=== PATIENT | female | born 1950 | race Caucasian/White ===

== ENCOUNTER 2019-06-25 05:57 | Inpatient (IN) | payer MEDICARE ==
[~2019-06-25] VITALS: Ht 162.6 cm; Wt 61.0 kg
[2019-06-25 07:12] LABS: BASOPHILS % (AUTO) 1.1 % (0.0-5.0); EOSINOPHILS % (AUTO) 2.2 % (0.0-8.0); HEMATOCRIT 32.2 % (36-48); LYMPHOCYTES % (AUTO) 40.5 % (21.0-51.0); MEAN CORPUSCULAR HEMOGLOBIN 25.9 pg (27.0-33.0); MEAN CORPUSCULAR HGB CONC 31.7 g/dL (32.0-36.0); MEAN CORPUSCULAR VOLUME 81.7 fL (79-99); MONOCYTES % (AUTO) 6.8 % (3.0-13.0); NEUTROPHILS % (AUTO) 48.7 % (40.0-77.0); RED BLOOD CELL COUNT(AUTO) 3.94 MIL/uL (4.00-5.50); RED CELL DISTRIBUTION WIDTH 19.5 % (11.0-15.5); WHITE BLOOD COUNT (AUTO) 7.2 K/uL (4.8-10.8)
[2019-06-25 07:23] LABS: CREATININE 1.4 mg/dL (0.5-1.5); POTASSIUM 4.7 mmol/L (3.5-5.1)
[2019-06-25 07:24] LABS: INR 1.04 (0.85-1.15); PARTIAL THROMBOPLASTIN TIME 26.3 SEC (26.3-35.5); PROTHROMBIN TIME 10.9 SEC (9.6-11.6)
[2019-06-25] MEDS ORDERED: METOCLOPRAMIDE 10 MG/2 ML VIAL ONE (07:34)
[2019-06-25] MEDS ORDERED: DiphenhydrAMINE HCL 50 MG/ML VIAL ONE (07:34)
[2019-06-25] MEDS ORDERED: ONDANSETRON HCL 4 MG/2 ML VIAL ONE (07:35)
[2019-06-25] MEDS ORDERED: SODIUM CHLORIDE 0.9% 1000ML 1,000 ML IV ONE (07:35)
[2019-06-25 07:37] LABS: BILIRUBIN,TOTAL 0.3 mg/dL (0.2-1.0); THYROID STIMULATING HORMONE 2.53 uIU/mL (0.36-3.74); TOTAL PROTEIN, SERUM 6.6 g/dL (6.0-8.3)
[2019-06-25 08:18] LABS: B-TYPE NATRIURETIC PEPTIDE 392 pg/mL (0-100)
[2019-06-25 08:25] LABS: PLATELET COUNT (AUTO) 806 K/uL (130-400)
[2019-06-25 08:53] LABS: PLATELET MORPHOLOGY COMMENT MARKED INCREASE
[2019-06-25] MEDS ORDERED: TACROLIMUS 2.5 MG PO SCH (09:00)
[2019-06-25] MEDS ORDERED: LACTATED RINGERS 1000ML 1,000 ML IV ONE (09:16)
[2019-06-25] MEDS ORDERED: KETOROLAC TROMETHAMINE 15MG/ML ONE (09:16)
[2019-06-25] MEDS ORDERED: ORPHENADRINE CITRATE 30 MG/ML ML ONE (09:16)
[2019-06-25] MEDS ORDERED: ONDANSETRON HCL 4 MG/2 ML VIAL IV PRN (09:45)
[2019-06-25] MEDS ORDERED: BUTALB/ACETAMINOPHEN/CAFFEINE 1 EACH TABLET PO ONE ×2 (09:45→11:24)
[2019-06-25] MEDS ORDERED: ACETAMINOPHEN 325 MG TAB PO PRN (09:45)
[2019-06-25] MEDS ORDERED: CLONAZEPAM 1 MG TABLET PO SCH (10:00)
[2019-06-25 11:03] LABS: % IRON SATURATION 7.8 % (22-44)
[2019-06-25] MEDS ORDERED: PHARMACY COMMUNICATION MISC SCH (14:15)
[2019-06-25] MEDS ORDERED: CLONAZEPAM 0.5 MG TABLET PO PRN (17:00)
[2019-06-25 20:54] VITALS: BP 133/78
[2019-06-25] MEDS ORDERED: TACROLIMUS 0.5 MG CAPSULE PO SCH (21:00)
[2019-06-25] MEDS ORDERED: MULT-1250 PO (22:18)
[2019-06-25] MEDS ORDERED: CALC-1153 PO (22:18)
[2019-06-25] MEDS ORDERED: ATEN25TA PO (22:19)
[2019-06-25] MEDS ORDERED: ANAG1CAP3 PO (22:19)
[2019-06-25] MEDS ORDERED: TACR1CAP10 PO (22:19)
[2019-06-25] MEDS ORDERED: MESA800T9 PO (22:19)
[2019-06-25] MEDS ORDERED: AEC81 PO (22:19)
[2019-06-25] MEDS ORDERED: TACR0.5C7 PO (22:19)
[2019-06-26] VITALS: BP 105/58
[2019-06-26] MEDS ORDERED: ACETAMINOPHEN EXTRA STRENGTH 500 MG TABLET ONE (00:11)
[2019-06-26] MEDS ORDERED: KETOROLAC TROMETHAMINE 30MG/ML IV PRN (00:15)
[2019-06-26] MEDS ORDERED: ACETAMINOPHEN 325 MG TAB PO PRN (00:15)
[2019-06-26 04:00] VITALS: BP 98/56
[2019-06-26 05:54] LABS: EOSINOPHILS % (AUTO) 1.3 % (0.0-8.0); HEMATOCRIT 28.2 % (36-48); LYMPHOCYTES % (AUTO) 44.9 % (21.0-51.0); MEAN CORPUSCULAR HEMOGLOBIN 25.6 pg (27.0-33.0); MEAN CORPUSCULAR HGB CONC 31.6 g/dL (32.0-36.0); MONOCYTES % (AUTO) 5.1 % (3.0-13.0); RED BLOOD CELL COUNT(AUTO) 3.48 MIL/uL (4.00-5.50); RED CELL DISTRIBUTION WIDTH 18.7 % (11.0-15.5); WHITE BLOOD COUNT (AUTO) 8.9 K/uL (4.8-10.8)
[2019-06-26 06:08] LABS: PLATELET COUNT (AUTO) 794 K/uL (130-400)
[2019-06-26 06:12] LABS: ALBUMIN 2.7 g/dL (3.5-5.0); BILIRUBIN,TOTAL 0.3 mg/dL (0.2-1.0); CREATININE 1.5 mg/dL (0.5-1.5); POTASSIUM 4.8 mmol/L (3.5-5.1); TOTAL PROTEIN, SERUM 5.8 g/dL (6.0-8.3)
[2019-06-26 08:00] VITALS: BP 108/67
[2019-06-26] MEDS: TACROLIMUS 1 MG CAPSULE PO SCH ×2 (08:50→20:57)
[2019-06-26] MEDS: FERROUS SULFATE 325 MG TABLET.DR PO SCH (08:52)
[2019-06-26] MEDS: FAMOTIDINE 20MG TAB 20 MG TAB PO SCH (08:52)
[2019-06-26] MEDS: MULTIVITAMIN WITH MINERALS TABLET PO SCH (08:52)
[2019-06-26] MEDS: CALCIUM 600 + VITAMIN D 400 TABLET PO SCH ×2 (08:52→20:58)
[2019-06-26] MEDS ORDERED: ASPIRIN 81MG TAB.CHEW PO SCH (09:00)
[2019-06-26] MEDS ORDERED: ATENOLOL 25 MG TABLET PO SCH (09:00)
[2019-06-26] MEDS: MESALAMINE 1600 MG PO SCH ×2 (09:00→21:03)
[2019-06-26] MEDS: TACROLIMUS 0.5 MG CAPSULE PO SCH ×2 (09:00→21:03)
[2019-06-26 12:00] VITALS: BP 117/59
[2019-06-26 13:35] LABS: % IRON SATURATION 7.8 % (22-44)
[2019-06-26 16:00] VITALS: BP 117/69
--- NOTE | 2019-06-26 16:34 | NUR ---
INITIAL Patient lives with spouse, Dayron Camarena, . Li Sanders from [place]. No home services or DME. Patient is independent and drives. PCP is Dr. Madhav Garcia. Pharmacy is [facility] in [place]. DCP is home. Addendum: 06/26/19 at 1637 by BERTRAM PRATT SS Amended: Links added.
[2019-06-26 20:00] VITALS: BP 115/70
[2019-06-26] MEDS: ATENOLOL 25 MG TABLET PO SCH (20:57)
[2019-06-26] MEDS: ASPIRIN 81 MG EC TAB PO SCH (20:58)
[2019-06-26] MEDS: ANAGRELIDE 1 MG PO SCH (21:03)
[2019-06-27] VITALS: BP 111/65
[2019-06-27 01:55] LABS: APPEARANCE,URINE Clear (CLEAR); BILIRUBIN,URINE Negative (NEGATIVE); COLOR,URINE Yellow (YELLOW); GLUCOSE, URINE (UA) Negative (NEGATIVE); KETONES,URINE Negative (NEGATIVE); LEUKOCYTE ESTERASE ,URINE Negative (NEGATIVE); NITRATE,URINE Negative (NEGATIVE); OCCULT BLOOD,URINE Negative (NEGATIVE); PROTEIN,URINE Negative (NEGATIVE); UROBILINOGEN,URINE 0.2 mg/dL (0.2-1.0)
[2019-06-27 01:59] LABS: CREATININE,URINE RANDOM 46 mg/dL (30-135); SODIUM,URINE RANDOM 74 mmol/l (40-220)
[2019-06-27 04:00] VITALS: BP 108/66
[2019-06-27 05:03] LABS: BASOPHILS % (AUTO) 1.1 % (0.0-5.0); EOSINOPHILS % (AUTO) 1.4 % (0.0-8.0); LYMPHOCYTES % (AUTO) 47.8 % (21.0-51.0); MEAN CORPUSCULAR HEMOGLOBIN 25.1 pg (27.0-33.0); MEAN CORPUSCULAR HGB CONC 31.3 g/dL (32.0-36.0); MONOCYTES % (AUTO) 5.2 % (3.0-13.0); RED BLOOD CELL COUNT(AUTO) 3.75 MIL/uL (4.00-5.50); RED CELL DISTRIBUTION WIDTH 19.2 % (11.0-15.5); WHITE BLOOD COUNT (AUTO) 10.3 K/uL (4.8-10.8)
[2019-06-27 05:27] LABS: ALBUMIN 2.7 g/dL (3.5-5.0); BILIRUBIN,TOTAL 0.3 mg/dL (0.2-1.0); CREATININE 1.4 mg/dL (0.5-1.5); POTASSIUM 4.8 mmol/L (3.5-5.1); THYROID STIMULATING HORMONE 1.91 uIU/mL (0.36-3.74); TOTAL PROTEIN, SERUM 6.2 g/dL (6.0-8.3)
[2019-06-27 05:38] LABS: % IRON SATURATION 8.4 % (22-44)
[2019-06-27 05:41] LABS: PLATELET COUNT (AUTO) 874 K/uL (130-400)
[2019-06-27 08:00] VITALS: BP 96/65
[2019-06-27] MEDS ORDERED: COMPOUND IV REFRIGERATED 1 EACH IVSOLN MISC PRN (08:30)
[2019-06-27] MEDS: TACROLIMUS 0.5 MG CAPSULE PO SCH ×2 (08:54→20:53)
[2019-06-27] MEDS: MULTIVITAMIN WITH MINERALS TABLET PO SCH (08:54)
[2019-06-27] MEDS: TACROLIMUS 1 MG CAPSULE PO SCH ×2 (08:55→20:53)
[2019-06-27] MEDS: FOLIC ACID/VITAMIN B COMP W-C 1 CAP TAB PO SCH (08:55)
[2019-06-27] MEDS: FERROUS SULFATE 325 MG TABLET.DR PO SCH (08:56)
[2019-06-27] MEDS: CALCIUM 600 + VITAMIN D 400 TABLET PO SCH ×2 (08:56→20:51)
[2019-06-27] MEDS: FAMOTIDINE 20MG TAB 20 MG TAB PO SCH (08:56)
[2019-06-27] MEDS: MESALAMINE 1600 MG PO SCH ×2 (08:57→20:54)
[2019-06-27] MEDS: ANAGRELIDE 1 MG PO SCH ×2 (08:57→20:54)
[2019-06-27] MEDS ORDERED: FOLIC ACID 5 MG/ML 10 ML VIAL IM SCH (09:00)
--- NOTE | 2019-06-27 09:29 | NUR ---
VOMITED ALL PILLS GIVEN THIS AM.
--- NOTE | 2019-06-27 09:30 | NUR ---
DR. COPELAND IN TO SEE PT. NO NEW ORDERS. PENDING LUMBAR TAP TODAY.
[2019-06-27] MEDS ORDERED: LIDOCAINE HCL MPF 1% 5ML VIAL ONE (10:13)
[2019-06-27 11:00] VITALS: BP 101/62
--- NOTE | 2019-06-27 11:01 | NUR ---
LUMBAR PUNCTURE DONE BY JM JOHNSON, PT. TOLERATED PROCEDURE WELL. ADVISED TO TRY AND STAY IN BED FOR THE NEXT FEW HRS. , ALSO INFORMED OF POSSIBLE POST LP HEADACHE.
--- NOTE | 2019-06-27 14:30 | NUR ---
DR. NAIDU IN TO SEE PT. UPDATE GIVEN, ORDERS GIVEN AND ENTERED.
[2019-06-27] MEDS ORDERED: COMPOUND IV MISC 1 EACH IVSOLN MISC PRN (15:15)
[2019-06-27 15:21] LABS: APPEARANCE,CSF CLEAR (CLEAR); COLOR,CSF COLORLESS (COLORLESS); CSF TUBE NUMBER 1; RED BLOOD CELL1,CSF 21 CMM (0-0); WHITE BLOOD CELL1,CSF 0 CMM (0-5)
[2019-06-27 15:30] LABS: APPEARANCE2,CSF CLEAR (CLEAR); COLOR2,CSF COLORLESS (COLORLESS); CSF 2ND TUBE NUMBER TUBE NO.3
[2019-06-27 16:00] VITALS: BP 110/73
[2019-06-27 16:08] LABS: GLUCOSE, CSF 52 mg/dL (40-70)
[2019-06-27 16:09] LABS: TOTAL PROTEIN, CSF 38 mg/dL (15-45)
[2019-06-27] MEDS: IRON SUCROSE COMPLEX 100 MG in SODIUM CHLORIDE 0.9% 50 ML IV SCH (17:21)
[2019-06-27 20:00] VITALS: BP 98/65
[2019-06-27] MEDS: ASPIRIN 81 MG EC TAB PO SCH (20:52)
[2019-06-27] MEDS: ATENOLOL 25 MG TABLET PO SCH (20:53)
[2019-06-28] VITALS: BP 94/56
[2019-06-28 03:56] VITALS: BP 100/56
[2019-06-28 05:44] LABS: HEMATOCRIT 30.1 % (36-48); MEAN CORPUSCULAR HEMOGLOBIN 25.7 pg (27.0-33.0); MEAN CORPUSCULAR HGB CONC 32.2 g/dL (32.0-36.0); MEAN CORPUSCULAR VOLUME 79.6 fL (79-99); RED BLOOD CELL COUNT(AUTO) 3.78 MIL/uL (4.00-5.50); WHITE BLOOD COUNT (AUTO) 9.4 K/uL (4.8-10.8)
[2019-06-28 05:50] LABS: PLATELET COUNT (AUTO) 738 K/uL (130-400)
[2019-06-28 06:01] LABS: BAND NEUTROPHILS % (MANUAL) 5 % (0-2); BASOPHILS % (MANUAL) 1 % (0-2); EOSINOPHILS % (MANUAL) 1 % (1-6); LYMPHOCYTES % (MANUAL) 27 % (22-44); MONOCYTES % (MANUAL) 13 % (2-9); REACTIVE LYMPHOCYTES 5 % (0-0); SEGMENTED NEUTROPHILS % 48 % (40-70)
[2019-06-28 06:02] LABS: MAN.DIFF COMMENT-IMPRESSION MANUAL DIFFERENTIAL; PLATELET MORPHOLOGY COMMENT INCREASED
[2019-06-28 06:19] LABS: ALBUMIN 2.7 g/dL (3.5-5.0); BILIRUBIN,TOTAL 0.3 mg/dL (0.2-1.0); CREATININE 1.5 mg/dL (0.5-1.5); POTASSIUM 4.8 mmol/L (3.5-5.1); TOTAL PROTEIN, SERUM 6.2 g/dL (6.0-8.3)
[2019-06-28 08:01] VITALS: BP 113/62
[2019-06-28] MEDS ORDERED: BUTALB/ACETAMINOPHEN/CAFFEINE 1 EACH TABLET PO PRN (08:15)
[2019-06-28] MEDS: FAMOTIDINE 20MG TAB 20 MG TAB PO SCH (08:59)
[2019-06-28] MEDS: MULTIVITAMIN WITH MINERALS TABLET PO SCH (08:59)
[2019-06-28] MEDS: FERROUS SULFATE 325 MG TABLET.DR PO SCH (08:59)
[2019-06-28] MEDS: TACROLIMUS 1 MG CAPSULE PO SCH ×2 (08:59→20:43)
[2019-06-28] MEDS: TACROLIMUS 0.5 MG CAPSULE PO SCH ×2 (08:59→20:43)
[2019-06-28] MEDS: CALCIUM 600 + VITAMIN D 400 TABLET PO SCH ×2 (08:59→20:43)
[2019-06-28] MEDS: MESALAMINE 1600 MG PO SCH ×2 (09:00→21:00)
[2019-06-28] MEDS: ANAGRELIDE 1 MG PO SCH (09:00)
[2019-06-28] MEDS: FOLIC ACID/VITAMIN B COMP W-C 1 CAP TAB PO SCH (09:00)
[2019-06-28 12:00] VITALS: BP 98/57
[2019-06-28] MEDS: HYDROXYUREA 500 MG CAP PO SCH ×2 (13:30→20:58)
[2019-06-28 16:00] VITALS: BP 103/63
[2019-06-28 20:09] VITALS: BP 96/59
[2019-06-28] MEDS: ASPIRIN 81 MG EC TAB PO SCH (20:43)
[2019-06-28] MEDS: ATENOLOL 25 MG TABLET PO SCH (20:44)
[2019-06-29] VITALS (7 sets, daily range): BP systolic 102–109; BP diastolic 51–69
[2019-06-29] MEDS: TACROLIMUS 1 MG CAPSULE PO SCH ×2 (09:00→21:00)
[2019-06-29] MEDS: MESALAMINE 1600 MG PO SCH ×2 (09:00→20:11)
[2019-06-29] MEDS: FAMOTIDINE 20MG TAB 20 MG TAB PO SCH (09:27)
[2019-06-29] MEDS: FOLIC ACID/VITAMIN B COMP W-C 1 CAP TAB PO SCH (09:27)
[2019-06-29] MEDS: TACROLIMUS 0.5 MG CAPSULE PO SCH ×2 (09:27→21:00)
[2019-06-29] MEDS: FERROUS SULFATE 325 MG TABLET.DR PO SCH (09:27)
[2019-06-29] MEDS: CALCIUM 600 + VITAMIN D 400 TABLET PO SCH ×2 (09:27→20:10)
[2019-06-29] MEDS: MULTIVITAMIN WITH MINERALS TABLET PO SCH (09:27)
[2019-06-29] MEDS: HYDROXYUREA 500 MG CAP PO SCH ×2 (09:27→21:46)
[2019-06-29 09:55] LABS: HEMATOCRIT 32.1 % (36-48); MEAN CORPUSCULAR HEMOGLOBIN 25.4 pg (27.0-33.0); MEAN CORPUSCULAR HGB CONC 31.5 g/dL (32.0-36.0); MEAN CORPUSCULAR VOLUME 80.9 fL (79-99); PLATELET COUNT (AUTO) 562 K/uL (130-400); RED BLOOD CELL COUNT(AUTO) 3.97 MIL/uL (4.00-5.50); WHITE BLOOD COUNT (AUTO) 10.1 K/uL (4.8-10.8)
[2019-06-29] MEDS: FOLIC ACID 1 MG TABLET PO SCH (14:23)
[2019-06-29] MEDS: IRON SUCROSE COMPLEX 100 MG in SODIUM CHLORIDE 0.9% 50 ML IV SCH (14:23)
--- NOTE | 2019-06-29 17:26 | NUR ---
PROGRAF Level is elevated at 10.[address] Bergeron during his rounds, Dr. Darby was paged to notify him of elevated level. No answer back; Dr. Bergeron was notified and offered to page Dr. Darby again. Dr. Bergeron stated not to page Dr. Darby again for this.
--- NOTE | 2019-06-29 20:10 | NUR ---
MEDS SHIFT ASSESSMENT DONE, PLEASE REFER TO CHART. DUE MEDS ADMINISTERED, TOLERATED WELL. PT REFUSED TO TAKE PROGRAF DOSE SHE CLAIMS THAT IT IS VERY HIGH LEVEL. ASSURED TO PAGE LOG PEELER TO VERIFY MED DOSAGE. KEPT RESTED IN BED. CALL LIGHT WITHIN REACH.
[2019-06-29] MEDS: ATENOLOL 25 MG TABLET PO SCH (20:11)
[2019-06-29] MEDS: ASPIRIN 81 MG EC TAB PO SCH (20:11)
--- NOTE | 2019-06-29 21:25 | NUR ---
PAGED DR NAIDU PAGED VIA ANSWERING SERVICE, AWAITING CALL BACK.
--- NOTE | 2019-06-29 21:40 | NUR ---
RE-PAGED NO CALL BACK FROM DR NAIDU, RE-PAGED VIA ANSWERING SERVICE. AWAITING CALL BACK.
--- NOTE | 2019-06-29 22:00 | NUR ---
CALL NO CALL BACK FROM DR NAIDU. CALLED RESOURCE NURSE AND CP NUMBER OBTAINED. CALLED MD VIA CP AND REFERRED PROGRAF LEVEL RESULTS. NEW ORDER GIVEN, PLEASE REFER TO CPOE. INFORMED PT OF MD ORDERS BUT STILL REFUSED PROGRAF DOSE TONIGHT.
--- NOTE | 2019-06-30 02:00 | NUR ---
ROUNDS PT RESTING WELL, FAIRLY ASLEEP. NO DISTRESS NOTED. KEPT RESTED AND COMFORTABLE. CALL LIGHT WITHIN REACH. WILL MONITOR PT.
[2019-06-30 03:10] VITALS: BP 98/59
[2019-06-30 05:51] LABS: HEMATOCRIT 32.8 % (36-48); MEAN CORPUSCULAR HEMOGLOBIN 25.2 pg (27.0-33.0); MEAN CORPUSCULAR HGB CONC 31.7 g/dL (32.0-36.0); MEAN CORPUSCULAR VOLUME 79.6 fL (79-99); PLATELET COUNT (AUTO) 464 K/uL (130-400); RED BLOOD CELL COUNT(AUTO) 4.12 MIL/uL (4.00-5.50); RED CELL DISTRIBUTION WIDTH 18.6 % (11.0-15.5); WHITE BLOOD COUNT (AUTO) 9.5 K/uL (4.8-10.8)
[2019-06-30 06:00] LABS: CREATININE 1.5 mg/dL (0.5-1.5); POTASSIUM 5.2 mmol/L (3.5-5.1)
--- NOTE | 2019-06-30 06:00 | NUR ---
ROUNDS PT STILL FAIRLY ASLEEP. NO DISTRESS NOTED. KEPT COMFORTABLE. FOR MORE CARE.
[2019-06-30 07:58] VITALS: BP 125/85
[2019-06-30] MEDS: MESALAMINE 1600 MG PO SCH ×2 (09:00→20:52)
[2019-06-30] MEDS: TACROLIMUS 0.5 MG CAPSULE PO SCH ×2 (09:00→21:00)
[2019-06-30] MEDS: TACROLIMUS 1 MG CAPSULE PO SCH ×2 (09:00→21:00)
[2019-06-30] MEDS: HYDROXYUREA 500 MG CAP PO SCH ×2 (09:17→20:52)
[2019-06-30] MEDS: CALCIUM 600 + VITAMIN D 400 TABLET PO SCH ×2 (09:17→20:52)
[2019-06-30] MEDS: FAMOTIDINE 20MG TAB 20 MG TAB PO SCH (09:17)
[2019-06-30] MEDS: MULTIVITAMIN WITH MINERALS TABLET PO SCH (09:17)
[2019-06-30] MEDS: FOLIC ACID/VITAMIN B COMP W-C 1 CAP TAB PO SCH (09:17)
[2019-06-30] MEDS: FERROUS SULFATE 325 MG TABLET.DR PO SCH (09:17)
[2019-06-30] MEDS: FOLIC ACID 1 MG TABLET PO SCH (09:17)
[2019-06-30] MEDS ORDERED: SODIUM POLYSTYRENE SULFONATE 15 GM/60 ML ML PO SCH (09:30)
[2019-06-30 11:37] VITALS: BP 91/53
[2019-06-30] MEDS: IRON SUCROSE COMPLEX 100 MG in SODIUM CHLORIDE 0.9% 50 ML IV SCH (13:24)
[2019-06-30 16:00] VITALS: BP 94/50
[2019-06-30] MEDS ORDERED: IRON SUCROSE COMPLEX 100 MG in SODIUM CHLORIDE 0.9% 50 ML IV SCH ×3 (16:00→20:15)
[2019-06-30 19:35] VITALS: BP 92/53
[2019-06-30] MEDS: ASPIRIN 81 MG EC TAB PO SCH (20:52)
--- NOTE | 2019-06-30 20:55 | NUR ---
MEDS SHIFT ASSESSMENT DONE, PLEASE REFER TO CHART. DUE MEDS ADMINISTERED, TOLERATED WELL. PT REFUSED PROGRAF DOSE AT THIS TIME. PIV NOTED TO BE INFILTRATED, DISCONTINUED WITH CATHETER INTACT. RE-INSERTED NEW PIV G22 TO RFA, PT TOLERATED WELL. KEPT RESTED AND COMFORTABLE IN BED. CALL LIGHT WITHIN REACH. WILL MONITOR PT. Addendum: 06/30/19 at 2321 by ANIRUDH SOARES RN RN Amended: Links added.
[2019-06-30] MEDS: ATENOLOL 25 MG TABLET PO SCH (21:00)
[2019-06-30 23:33] VITALS: BP 102/58
[2019-07-01] VITALS (28 sets, daily range): BP systolic 82–115; BP diastolic 36–63
--- NOTE | 2019-07-01 02:00 | NUR ---
ROUNDS PT RESTING WELL, NO DISTRESS NOTED. SLEPT AT LONG INTERVALS. KEPT UNDISTURBED FOR NOW. WILL MONITOR PT.
--- NOTE | 2019-07-01 05:38 | NUR ---
ROUNDS PT RESTING WELL, NO DISTRESS NOTED. NO CONCERNS VERBALIZED. KEPT COMFORTABLE. FOR MORE CARE.
[2019-07-01 06:09] LABS: MEAN CORPUSCULAR HEMOGLOBIN 25.4 pg (27.0-33.0); MEAN CORPUSCULAR HGB CONC 31.8 g/dL (32.0-36.0); MEAN CORPUSCULAR VOLUME 79.9 fL (79-99); PLATELET COUNT (AUTO) 297 K/uL (130-400); RED BLOOD CELL COUNT(AUTO) 4.13 MIL/uL (4.00-5.50); RED CELL DISTRIBUTION WIDTH 18.9 % (11.0-15.5); WHITE BLOOD COUNT (AUTO) 9.4 K/uL (4.8-10.8)
[2019-07-01 06:33] LABS: CREATININE 1.4 mg/dL (0.5-1.5); POTASSIUM 4.6 mmol/L (3.5-5.1)
--- NOTE | 2019-07-01 08:40 | NUR ---
NOTIFIED NOTIFIED DR. GONZALEZ REGARDING NOTIFICATION FROM TELE THAT PATIENT'S HEART RATE JUMPED TO THE 190'S. CONTACTED PATIENT WHO WAS IN THE BATHROOM BRUSHING HER TEETH. PATIENT STATED SHE WAS TIRED AND SOB. PATIENT MOVED TO BED AND ASSESSED. HEART RATE DROPPED TO 86 WITH BP OF 109/54. DR. GONZALEZ ORDERED A ONE TIME DOSE OF ATEOLOL 25MG. PATIENT NOW RESTING COMFORTABLY.
[2019-07-01] MEDS: TACROLIMUS 1 MG CAPSULE PO SCH ×2 (09:00→21:00)
[2019-07-01] MEDS ORDERED: ATENOLOL 25 MG TABLET PO SCH (09:00)
[2019-07-01] MEDS: TACROLIMUS 0.5 MG CAPSULE PO SCH ×2 (09:00→21:00)
[2019-07-01] MEDS ORDERED: IRON SUCROSE COMPLEX 100 MG in SODIUM CHLORIDE 0.9% 50 ML IV SCH (09:00)
[2019-07-01] MEDS: FOLIC ACID/VITAMIN B COMP W-C 1 CAP TAB PO SCH (09:20)
[2019-07-01] MEDS: FAMOTIDINE 20MG TAB 20 MG TAB PO SCH (09:20)
[2019-07-01] MEDS: FERROUS SULFATE 325 MG TABLET.DR PO SCH (09:20)
[2019-07-01] MEDS: CALCIUM 600 + VITAMIN D 400 TABLET PO SCH ×2 (09:21→21:00)
[2019-07-01] MEDS: MULTIVITAMIN WITH MINERALS TABLET PO SCH (09:21)
[2019-07-01] MEDS: FOLIC ACID 1 MG TABLET PO SCH (09:21)
[2019-07-01] MEDS: HYDROXYUREA 500 MG CAP PO SCH (09:21)
[2019-07-01] MEDS: MESALAMINE 1600 MG PO SCH ×2 (09:24→21:00)
[2019-07-01] MEDS ORDERED: PANTOPRAZOLE 40 MG/VIAL IVP SCH (13:30)
[2019-07-01] MEDS ORDERED: OCTREOTIDE ACETATE 100 MCG/ML AMP IV SCH (13:30)
[2019-07-01] MEDS ORDERED: OCTREOTIDE ACETATE 1,250 MCG in SODIUM CHLORIDE 0.9% 250 ML IV SCH (13:30)
[2019-07-01] MEDS ORDERED: DEXTROSE 5%-LACTATED RINGERS 1,000 ML IV SCH (13:30)
[2019-07-01] MEDS ORDERED: LACTATED RINGERS 1000ML 1,000 ML IV SCH (14:00)
[2019-07-01] MEDS ORDERED: LACTATED RINGERS 1000ML 1,000 ML IV ONE (14:07)
[2019-07-01] MEDS: PANTOPRAZOLE SODIUM 80 MG in SODIUM CHLORIDE 0.9% 100 ML IV SCH ×3 (14:17→20:37)
[2019-07-01 14:34] LABS: BASOPHILS % (AUTO) 0.8 % (0.0-5.0); EOSINOPHILS % (AUTO) 0.8 % (0.0-8.0); HEMATOCRIT 31.6 % (36-48); LYMPHOCYTES % (AUTO) 41.4 % (21.0-51.0); MEAN CORPUSCULAR HEMOGLOBIN 25.6 pg (27.0-33.0); MONOCYTES % (AUTO) 4.6 % (3.0-13.0); NEUTROPHILS % (AUTO) 51.8 % (40.0-77.0); PLATELET COUNT (AUTO) 284 K/uL (130-400); RED BLOOD CELL COUNT(AUTO) 3.95 MIL/uL (4.00-5.50); RED CELL DISTRIBUTION WIDTH 18.8 % (11.0-15.5)
[2019-07-01 15:00] LABS: INR 1.08 (0.85-1.15); PARTIAL THROMBOPLASTIN TIME 30.7 SEC (26.3-35.5); PROTHROMBIN TIME 11.6 SEC (9.6-11.6)
--- NOTE | 2019-07-01 16:57 | NUR ---
REPORT REPORT GIVEN TO CORINE RN ON 2ND FLOOR REGARDING TRANSFER OF PATIENT.
[2019-07-01] MEDS ORDERED: MAGNESIUM CITRATE 296 ML SOLUTION PO SCH (17:00)
[2019-07-01] MEDS ORDERED: PEG 3350/NA SULF,BICARB,CL/KCL 4000 ML SOLN PO SCH (17:00)
[2019-07-01] MEDS ORDERED: LACTULOSE 20 GM/30 ML UDCUP PO SCH (17:00)
--- NOTE | 2019-07-01 17:18 | NUR ---
PATIENT TRANSFER PATIENT TRANSFERRED TO 2ND FLOOR.
[2019-07-01] MEDS ORDERED: SODIUM CHLORIDE 0.9% 1000ML 1,000 ML IV STA (17:39)
[2019-07-01] MEDS ORDERED: SODIUM CHLORIDE 0.9% 1000ML 1,000 ML IV ONE (17:47)
--- NOTE | 2019-07-01 18:00 | NUR ---
1719 RECEIVED PT FROM 3RD FLOOR. HYPOTENSIVE BUT ALERT. AWAKE, ORIENTED, MOVES ALL EXTREMITES. C/O RECTAL BLEEDING. LAST BLEED WAS At 2PM, STATES WERE DARK CLOTS. STARTED [address] AJ DUE TO EARLIER RUN OF SVT. DR GÓMEZ AWARE OF CONSULT. DR SHEEHAN TO SEE PT. ORDERED TO WAIT FOR BLOOD TRANSFUSION UNTIL PT HAS HAD NEW H&H DRAWN. AND IS ACTIVELY BLEEDING. DR GONZALEZ HERE TO SEE PT AFTER SISSY LEFT AND IS CONCURRING WITH SISSY ABOUT BLOOD.
[2019-07-01] MEDS: LACTATED RINGERS 1000ML 1,000 ML IV SCH (18:04)
--- NOTE | 2019-07-01 18:30 | NUR ---
BP HAS GONE UP WITH FLUID BOLUS. PT IS AAO X4. AT BEDSIDE.
[2019-07-01] MEDS: ASPIRIN 81 MG EC TAB PO SCH (18:32)
[2019-07-01] MEDS ORDERED: PHENYLEPHRINE HCL 10 MG in SODIUM CHLORIDE 0.9% 250 ML IV PRN (18:54)
[2019-07-01] MEDS: ATENOLOL 25 MG TABLET PO SCH (21:31)
[2019-07-01] MEDS ORDERED: SODIUM CHLORIDE 0.9% 250 ML IV ONE (22:10)
--- NOTE | 2019-07-01 23:30 | NUR ---
rounding Patient continues to feel weak and unable to drink medications, informed states to hold medication till tomorrow until patients feels capable to drink medication. Case to be reevaluated tomorrow AM
[2019-07-02] VITALS (42 sets, daily range): BP systolic 94–132; BP diastolic 45–73
[2019-07-02 05:37] LABS: HEMATOCRIT 29.2 % (36-48); MEAN CORPUSCULAR HEMOGLOBIN 25.8 pg (27.0-33.0); MEAN CORPUSCULAR HGB CONC 31.8 g/dL (32.0-36.0); MEAN CORPUSCULAR VOLUME 80.9 fL (79-99); PLATELET COUNT (AUTO) 231 K/uL (130-400); RED BLOOD CELL COUNT(AUTO) 3.61 MIL/uL (4.00-5.50); RED CELL DISTRIBUTION WIDTH 17.8 % (11.0-15.5); WHITE BLOOD COUNT (AUTO) 8.8 K/uL (4.8-10.8)
[2019-07-02 06:07] LABS: CREATININE 1.5 mg/dL (0.5-1.5); MAGNESIUM 2.4 mg/dL (1.80-2.40); POTASSIUM 4.7 mmol/L (3.5-5.1)
[2019-07-02] MEDS: PANTOPRAZOLE SODIUM 80 MG in SODIUM CHLORIDE 0.9% 100 ML IV SCH ×2 (07:48→17:56)
[2019-07-02] MEDS: FOLIC ACID/VITAMIN B COMP W-C 1 CAP TAB PO SCH (09:00)
[2019-07-02] MEDS: FAMOTIDINE 20MG TAB 20 MG TAB PO SCH (09:00)
[2019-07-02] MEDS: FOLIC ACID 1 MG TABLET PO SCH (09:00)
[2019-07-02] MEDS: MESALAMINE 1600 MG PO SCH (09:00)
[2019-07-02] MEDS: CALCIUM 600 + VITAMIN D 400 TABLET PO SCH ×2 (09:00→23:23)
[2019-07-02] MEDS: TACROLIMUS 1 MG CAPSULE PO SCH ×2 (09:00→21:00)
[2019-07-02] MEDS: FERROUS SULFATE 325 MG TABLET.DR PO SCH (09:00)
[2019-07-02] MEDS: TACROLIMUS 0.5 MG CAPSULE PO SCH ×2 (09:00→21:00)
[2019-07-02] MEDS: MULTIVITAMIN WITH MINERALS TABLET PO SCH (09:00)
[2019-07-02] MEDS: LACTATED RINGERS 1000ML 1,000 ML IV SCH ×2 (11:43→22:36)
[2019-07-02 12:07] LABS: HEMATOCRIT 29.2 % (36-48)
--- NOTE | 2019-07-02 14:55 | NUR ---
RD SCREEN - LOS X 7 Pt admitted for severe headache, GBW x10 days. Pt Hx of ulcerative colitis, anemia, liver transplant. Pt NPO this AM, pending procedure. When medically feasible, recommend advance diet as tolerated to Heart Healthy, GI Soft diet order. RD to continue to monitor. Please notify LILA as additional nutrition concerns arise. thank you. Addendum: 07/02/19 at [address] Amended: Links added.
--- NOTE | 2019-07-02 20:20 | NUR ---
MD ROUNDS DR CHOPRA AT THE BEDSIDE UPDATED ON PATIENT CONDITION. INQUIRED TO WHY HAS BEEN REFUSING PROGRAF. PATIENT STATED THAT LAST LEVEL WAS ELEVATED AND IS TRYING TO CONTACT [facility] ON RECOMMENDED RANGE. TACROLIMUS LEVEL DRAWN. MD SPOKE TO PATIENT REGARDING CURRENT AND PAST THERAPIES. PATIENT PENDING TO GO FOR COLOSCOPY. DR CHOPRA RECOMMENDATION FOR MASALAMINE KS, TO COMMUNICATE WITH DR GRIMM AND SEE WHAT GI RECOMMENDS. PATIENT QUESTIONS ANSWERED.
[2019-07-02] MEDS ORDERED: PROPOFOL 10 MG/ML 20ML VIAL IV ONE ×2 (21:04)
[2019-07-02] MEDS ORDERED: LIDOCAINE HCL 1% 20 ML VIAL ONE (21:05)
[2019-07-02 21:18] LABS: HEMATOCRIT 31.1 % (36-48)
[2019-07-02] MEDS ORDERED: MESALAMINE 4 GM/60 ML BOTTLE RC SCH (22:00)
[2019-07-02] MEDS ORDERED: MESALAMINE 4 GM/60 ML BOTTLE RC ONE (22:00)
--- NOTE | 2019-07-02 22:00 | NUR ---
COLONOSCOPY 2051 PATIENT TO GI LAB FOR COLONOSCOPY. 2137 REPORT CALLED FROM GI LAB. DR SIRISHA TROTTER WITH MESALAMINE NH. 2149 PATIENT RETURNED TO ROOM 207. LYING LEFT LATERAL. BREATHING REGULAR UNLABORED WITH 2L NC. NEOSYNEPHRINE RESTARTED DURING PROCEDURE. NO ACUTE SIGNS OR SYMPTOMS OF DISTRESS. ORDERS REVIEWED.
[2019-07-02] MEDS: ATENOLOL 25 MG TABLET PO SCH (23:25)
[2019-07-03] VITALS (22 sets, daily range): BP systolic 89–112; BP diastolic 33–66
[2019-07-03 03:45] LABS: BASOPHILS % (AUTO) 1.3 % (0.0-5.0); EOSINOPHILS % (AUTO) 0.4 % (0.0-8.0); HEMATOCRIT 28.5 % (36-48); LYMPHOCYTES % (AUTO) 62.1 % (21.0-51.0); MEAN CORPUSCULAR HEMOGLOBIN 25.2 pg (27.0-33.0); MEAN CORPUSCULAR HGB CONC 30.9 g/dL (32.0-36.0); MEAN CORPUSCULAR VOLUME 81.7 fL (79-99); MONOCYTES % (AUTO) 3.8 % (3.0-13.0); NEUTROPHILS % (AUTO) 31.7 % (40.0-77.0); PLATELET COUNT (AUTO) 313 K/uL (130-400); RED BLOOD CELL COUNT(AUTO) 3.49 MIL/uL (4.00-5.50); RED CELL DISTRIBUTION WIDTH 18.7 % (11.0-15.5); WHITE BLOOD COUNT (AUTO) 10.5 K/uL (4.8-10.8)
[2019-07-03 03:59] LABS: INR 1.11 (0.85-1.15); PARTIAL THROMBOPLASTIN TIME 31.3 SEC (26.3-35.5); PROTHROMBIN TIME 11.9 SEC (9.6-11.6)
[2019-07-03 04:01] LABS: CREATININE 1.3 mg/dL (0.5-1.5); MAGNESIUM 2.1 mg/dL (1.80-2.40); PHOSPHORUS 1.9 mg/dL (2.5-4.9); POTASSIUM 4.2 mmol/L (3.5-5.1)
[2019-07-03] MEDS: TACROLIMUS 1 MG CAPSULE PO SCH ×2 (09:00→21:00)
[2019-07-03] MEDS: TACROLIMUS 0.5 MG CAPSULE PO SCH ×2 (09:00→21:00)
[2019-07-03] MEDS: FAMOTIDINE 20MG TAB 20 MG TAB PO SCH (09:00)
[2019-07-03] MEDS: MULTIVITAMIN WITH MINERALS TABLET PO SCH (09:31)
[2019-07-03] MEDS: FOLIC ACID 1 MG TABLET PO SCH (09:31)
[2019-07-03] MEDS: FERROUS SULFATE 325 MG TABLET.DR PO SCH (09:31)
[2019-07-03] MEDS: PANTOPRAZOLE SODIUM 40 MG TABLET.DR PO SCH ×2 (09:31→21:21)
[2019-07-03] MEDS: FOLIC ACID/VITAMIN B COMP W-C 1 CAP TAB PO SCH (09:31)
[2019-07-03] MEDS: CALCIUM 600 + VITAMIN D 400 TABLET PO SCH ×2 (09:31→21:21)
[2019-07-03] MEDS: MESALAMINE 800 MG PO SCH ×3 (10:52→21:23)
--- NOTE | 2019-07-03 13:30 | NUR ---
REPORT FROM ICU REPORT RECEIVED AT 1248 PATIENT BEING TRANSFERRED FROM [facility] TO ROOM 332 , PATIENT HAD COLOSTOMY 07/02/19 FINDING NO ACUTE BLEEDING TRANSFUSED 1 UNIT OF PRBC 06/30 H/H TODAY 8.8/28.5 , HAS PATIENT HAS HX OF LIVER TRANSPLANT, AFIB,EF 60-65% , ON CLEAR LIQUID DIET 2 IV LINELEFT F /A 18G AND R F/A 22 G INTACT PATENT SL, O2 AT 2 LITERS NC VOIDS, LAST BM 3. BLOODY STOOL X2 , AT BEDSIDE WILL CONTINUE TO MONITOR
[2019-07-03] MEDS ORDERED: MESALAMINE 4 GM/60 ML BOTTLE RC SCH ×2 (21:00)
[2019-07-03] MEDS: ATENOLOL 25 MG TABLET PO SCH (21:21)
[2019-07-03] MEDS: MESALAMINE 4 GM/60 ML BOTTLE RC SCH (21:22)
[2019-07-04] VITALS: BP 98/56
[2019-07-04 01:08] LABS: HSV 1/2 COMBINED AB IGG CSF <0.34 IV (<=0.89); HSV TYPE 1/2 COMBINED IGM CSF 0.21 IV (<=0.89); MUMPS VIRUS IGG ANTIBODY CSF <5.0 AU/mL (<=10.9); MUMPS VIRUS IGM ANTIBODY CSF 0.15 IV (<=0.79); VARICELLA IGG ANTIBODY CSF <10.0 IV (.); WEST NILE VIRUS IGG CSF 0.11 IV (<=1.29)
[2019-07-04 04:00] VITALS: BP 96/57
[2019-07-04 04:52] LABS: HEMATOCRIT 26.4 % (36-48); MEAN CORPUSCULAR HEMOGLOBIN 25.9 pg (27.0-33.0); MEAN CORPUSCULAR HGB CONC 32.2 g/dL (32.0-36.0); MEAN CORPUSCULAR VOLUME 80.5 fL (79-99); PLATELET COUNT (AUTO) 343 K/uL (130-400); RED BLOOD CELL COUNT(AUTO) 3.28 MIL/uL (4.00-5.50); WHITE BLOOD COUNT (AUTO) 12.4 K/uL (4.8-10.8)
[2019-07-04 05:16] LABS: CREATININE 1.3 mg/dL (0.5-1.5)
[2019-07-04 07:38] LABS: EOSINOPHILS % (MANUAL) 1 % (1-6); LYMPHOCYTES % (MANUAL) 44 % (22-44); MAN.DIFF COMMENT-IMPRESSION MANUAL DIFFERENTIAL; MONOCYTES % (MANUAL) 7 % (2-9); PLATELET MORPHOLOGY COMMENT ADEQUATE; REACTIVE LYMPHOCYTES 4 % (0-0); SEGMENTED NEUTROPHILS % 44 % (40-70)
[2019-07-04 08:36] VITALS: BP 95/59
[2019-07-04] MEDS: FERROUS SULFATE 325 MG TABLET.DR PO SCH (08:51)
[2019-07-04] MEDS: CALCIUM 600 + VITAMIN D 400 TABLET PO SCH ×2 (08:51→21:00)
[2019-07-04] MEDS: FOLIC ACID 1 MG TABLET PO SCH (08:52)
[2019-07-04] MEDS: FOLIC ACID/VITAMIN B COMP W-C 1 CAP TAB PO SCH (08:52)
[2019-07-04] MEDS: MULTIVITAMIN WITH MINERALS TABLET PO SCH (08:52)
[2019-07-04] MEDS: MESALAMINE 800 MG PO SCH ×3 (08:55→21:00)
[2019-07-04] MEDS: FAMOTIDINE 20MG TAB 20 MG TAB PO SCH (08:56)
[2019-07-04] MEDS: TACROLIMUS 1 MG CAPSULE PO SCH ×2 (09:00→21:00)
[2019-07-04] MEDS: TACROLIMUS 0.5 MG CAPSULE PO SCH ×2 (09:00→21:00)
[2019-07-04] MEDS: PANTOPRAZOLE SODIUM 40 MG TABLET.DR PO SCH ×2 (12:00→21:00)
[2019-07-04 12:02] VITALS: BP 94/46
--- NOTE | 2019-07-04 13:36 | NUR ---
PHYSICIAN ROUNDS DR MARY ROUNDED ON PATIENT, RX WRITTEN PATIENT MAY BE DISCHARGE FOLLOW-UP IN 1 WEEK. PRESCRIPTION PLACED IN CHART FOR DISCHARGE AND WRITTEN ODER SEND TO PHARMACY.
--- NOTE | 2019-07-04 13:46 | NUR ---
PHYSICIAN ROUND DR NAIDU ROUNDED ON PATIENT LABS ORDERED FOR AM CBC AND BMP
[2019-07-04 16:12] VITALS: BP 92/50
--- NOTE | 2019-07-04 16:48 | NUR ---
CM NOTE MEET WITH PATIENT IN ROOM. INFORMED PATIENT OF PT RECOMMENDATIONS FOR HH WITH PT. INFORMED PATIENT TO FOLLOW UP WITH HER PRIMARY CARE PHYSICIAN FOR HH WITH PHYSICAL THERAPY, PATIENT VERBALIZED UNDERSTANDING OF PRIMARY CARE PHYSICIAN OVERSEEING HOME HEALTH WITH PT. PRIMARY NURSE, EDWINA AVILES, MADE AWARE.
--- NOTE | 2019-07-04 19:25 | NUR ---
Received bedside report,patient is possibly going home tomorrow with Homehealth for PT.Patient verbalized she is feeling too weak.
[2019-07-04 20:00] VITALS: BP 101/55
--- NOTE | 2019-07-04 20:30 | NUR ---
here and said patient called him asking for help .went to check on patient and v/s receheked.Patient answered questions but too weak . [employer]SULT[employer] Corbin notified about patient new metation change and Temp 102.1
--- NOTE | 2019-07-04 20:30 | NUR ---
SONIYA Ramirez ic here and examined the patient.
[2019-07-04] MEDS: ATENOLOL 25 MG TABLET PO SCH (21:00)
[2019-07-04] MEDS: MESALAMINE 4 GM/60 ML BOTTLE RC SCH (21:00)
[2019-07-04] MEDS ORDERED: ACETAMINOPHEN 650 MG SUPPOSITORY RC ONE (21:12)
[2019-07-04] MEDS ORDERED: ACETAMINOPHEN 650 MG SUPPOSITORY RC PRN (21:15)
[2019-07-04] MEDS: SODIUM CHLORIDE 0.9% 1000ML 1,000 ML IV SCH (21:19)
--- NOTE | 2019-07-04 21:20 | NUR ---
Patient and refused CT head to be done .
[2019-07-04] MEDS ORDERED: VANCOMYCIN PROTOCOL PER PHARMACY IV SCH (21:30)
[2019-07-04] MEDS ORDERED: VANCOMYCIN 1GM+NS 250ML 250 ML IV ONE (21:45)
--- NOTE | 2019-07-04 21:49 | NUR ---
notified of patient condition and V/S Syhdy1q 102.1 ,received new order to give Merrem and Vancomycin IV.
[2019-07-04 21:51] LABS: ABG BASE EXCESS -4.3 mmol/L (-2.0-3.0); ABG HCO3 18.1 mmol/L (21.0-28.0); ABG OXYGEN SATURATION 95.9 % (95.0-99.0); ABG PCO2 27 mmHg (32-45)
[2019-07-04 21:52] LABS: MEAN CORPUSCULAR HGB CONC 32.2 g/dL (32.0-36.0); MEAN CORPUSCULAR VOLUME 80.6 fL (79-99); PLATELET COUNT (AUTO) 400 K/uL (130-400); RED BLOOD CELL COUNT(AUTO) 3.35 MIL/uL (4.00-5.50); RED CELL DISTRIBUTION WIDTH 18.3 % (11.0-15.5); WHITE BLOOD COUNT (AUTO) 12.1 K/uL (4.8-10.8)
[2019-07-04] MEDS ORDERED: MEROPENEM 1 GM VIAL IVP SCH (22:00)
[2019-07-04 22:08] LABS: CRP QUANTITATIVE 57.7 mg/L (0.00-9.0)
[2019-07-04 22:33] LABS: AMMONIA 12 umol/L (11-32); CREATINE KINASE, TOTAL 16 U/L (21-232); MYOGLOBIN 32 ng/mL (10-92); TROPONIN I < 0.04 ng/mL (0.00-0.06)
[2019-07-04] MEDS: MEROPENEM 1 GM VIAL IVP SCH (22:33)
[2019-07-04 22:47] LABS: CREATININE 1.2 mg/dL (0.5-1.5)
[2019-07-04 22:52] LABS: ALBUMIN 2.1 g/dL (3.5-5.0); BILIRUBIN,TOTAL 0.3 mg/dL (0.2-1.0); MAGNESIUM 2.2 mg/dL (1.80-2.40); TOTAL PROTEIN, SERUM 5.1 g/dL (6.0-8.3)
[2019-07-04 23:22] LABS: BAND NEUTROPHILS % (MANUAL) 2 % (0-2); LYMPHOCYTES % (MANUAL) 43 % (22-44); MAN.DIFF COMMENT-IMPRESSION MANUAL DIFFERENTIAL; MONOCYTES % (MANUAL) 2 % (2-9); SEGMENTED NEUTROPHILS % 53 % (40-70)
[2019-07-04 23:23] LABS: PLATELET MORPHOLOGY COMMENT ADEQUATE
--- NOTE | 2019-07-04 23:40 | NUR ---
notified and updated with patient V/SD and lab results, informed patient refused Ct head and verbalized feeling much better now.He said to continue to transfer patient in ICU for close monitoring for tonight.
[2019-07-05] VITALS (24 sets, daily range): BP systolic 85–112; BP diastolic 41–70
--- NOTE | 2019-07-05 | NUR ---
Report given to ICU nurse Uche using SBAR all questions answered.Patient remained NPO and NS infusing well to right forearm.Patient is going to ICU 217. was also updated .
[2019-07-05 04:58] LABS: BASOPHILS % (AUTO) 0.6 % (0.0-5.0); EOSINOPHILS % (AUTO) 0.2 % (0.0-8.0); HEMATOCRIT 26.2 % (36-48); LYMPHOCYTES % (AUTO) 63.2 % (21.0-51.0); MEAN CORPUSCULAR HEMOGLOBIN 25.7 pg (27.0-33.0); MEAN CORPUSCULAR HGB CONC 32.1 g/dL (32.0-36.0); MEAN CORPUSCULAR VOLUME 80.1 fL (79-99); MONOCYTES % (AUTO) 3.5 % (3.0-13.0); NEUTROPHILS % (AUTO) 31.5 % (40.0-77.0); PLATELET COUNT (AUTO) 381 K/uL (130-400); RED BLOOD CELL COUNT(AUTO) 3.27 MIL/uL (4.00-5.50); RED CELL DISTRIBUTION WIDTH 18.6 % (11.0-15.5); WHITE BLOOD COUNT (AUTO) 10.4 K/uL (4.8-10.8)
[2019-07-05 05:12] LABS: BILIRUBIN,TOTAL 0.3 mg/dL (0.2-1.0); POTASSIUM 3.8 mmol/L (3.5-5.1)
[2019-07-05 05:19] LABS: MAGNESIUM 1.9 mg/dL (1.80-2.40)
[2019-07-05 06:11] LABS: CREATININE 1.1 mg/dL (0.5-1.5)
[2019-07-05] MEDS: MEROPENEM 1 GM VIAL IVP SCH ×3 (06:34→22:00)
[2019-07-05] MEDS: SODIUM CHLORIDE 0.9% 1000ML 1,000 ML IV SCH ×2 (06:35→18:15)
[2019-07-05] MEDS: FOLIC ACID 1 MG TABLET PO SCH (09:28)
[2019-07-05] MEDS: TACROLIMUS 1 MG CAPSULE PO SCH ×2 (09:28→20:39)
[2019-07-05] MEDS: CALCIUM 600 + VITAMIN D 400 TABLET PO SCH ×2 (09:28→20:38)
[2019-07-05] MEDS: PANTOPRAZOLE SODIUM 40 MG TABLET.DR PO SCH ×2 (09:28→20:39)
[2019-07-05] MEDS: FOLIC ACID/VITAMIN B COMP W-C 1 CAP TAB PO SCH (09:28)
[2019-07-05] MEDS: HYDROXYUREA 500 MG CAP PO SCH (09:28)
[2019-07-05] MEDS: TACROLIMUS 0.5 MG CAPSULE PO SCH ×2 (09:29→20:39)
[2019-07-05] MEDS: FERROUS SULFATE 325 MG TABLET.DR PO SCH (09:29)
[2019-07-05] MEDS: MULTIVITAMIN WITH MINERALS TABLET PO SCH (09:29)
[2019-07-05] MEDS: MESALAMINE 4 GM/60 ML BOTTLE RC SCH (09:30)
[2019-07-05] MEDS: MESALAMINE 800 MG PO SCH ×3 (09:30→20:40)
[2019-07-05] MEDS: FAMOTIDINE 20MG TAB 20 MG TAB PO SCH (09:32)
[2019-07-05] MEDS: VANCOMYCIN 500MG+NS 100ML 100 ML IV SCH ×2 (10:54→20:42)
--- NOTE | 2019-07-05 11:11 | NUR ---
Nutrition Follow-up: Pt. on GI Soft [place] diet. Pt. reports eating <50% of her meals due to gets full easily since she is used to eating small quantities of food at mealtimes. Spoke with pt. regarding nutritional supplementation and pt. agreed to try. Labs reviewed(Alb 2.0). LBM: 07/05/2019, per pt. Pt. with 1+ edema to mac foot. Recommendations: 1) Rec. Vanilla or [place] Ensure QD with B'fast meal. 2) Continue to monitor pt's nutritional status. 3) Consult RD as nutrition concerns arise. Addendum: 07/05/19 at [address] Amended: Links added.
--- NOTE | 2019-07-05 16:00 | NUR ---
PATIENT REQUESTING TRANSFER TO [facility] (WHERE SHE HAD HER LIVER TRANSPLANT) PATIENT AND FAMILY ARE REQUESTING TRANSFER TO THE [facility]. THEY HAVE BEEN IN CONTACT WITH COORDINATORS THERE AND ARE TRYING TO BE TRANSFERRED THERE. PATIENT REMAINS STABLE WITH CONSISTENT BLOOD PRESSURES IN 90'S TO LOW 100'S. PATIENT HAS BEEN WALKING TO THE RESTROOM WITH MINIMAL ASSISTANCE ALL MORNING. WILL NOTIFY CHARGE NURSE AND DR CHOPRA OF PATIENT'S REQUEST
--- NOTE | 2019-07-05 17:00 | NUR ---
cm note spoke to pt and daughter nat salazar they are requesting transfer to [facility] in [place] with liver transplant team , dr Oneil aware and will speak to pt/family. provided phone# [phone] to bathhouse keeper and informed of pt/family request. and states will followup.
--- NOTE | 2019-07-05 17:30 | NUR ---
TRANSFER MET WITH PT AND FAMILY PT IS REQUESTING TRANSFER TO [facility]. DISCUSSED TRANSFER PROCESS WITH PRIMARY MD AND CN IN ATTENDANCE. PT SIGNED MARIA INES AND TRANSFER PERMIT. PLACED A CALL TO [facility] SPOKE WITH STEVE @ [phone], FAXED INFO REQUESTED, AWAITING CALL BACK.
--- NOTE | 2019-07-05 17:30 | NUR ---
DR CHOPRA AT BEDSIDE DR CHOPRA AT THE BEDSIDE SPEAKING TO PATIENT AND FAMILY REGARDING TRANSFER TO [facility]. DR CHOPRA WAS ON THE PHONE CONFERRING WITH PHYSICIAN AT [facility] REVIEWING DATA. PLAN FORMED, NEW ORDERS RECEIVED. PATIENT WILL REMAIN HERE AT THIS TIME. FAMILY UNDERSTANDS AND IS THANKFUL THAT WE SPOKE TO THE PHYSICIANS AT [facility].
--- NOTE | 2019-07-05 18:30 | NUR ---
TRANSFER DR CHOPRA OUR HOSPITALIST SPOKE TO THE DOCTOR AT [facility] (DR. KING) WHO DECLINED TRANSFER SINCE IT IS NOT A HIGHER LEVEL OF CARE. DR. CHOPRA SPOKE TO PT AND FAMILY INFORMING THEM OF THE DECLINATION OF TRANSFER. PRIMARY NURSE INFORMED WELL
[2019-07-05] MEDS: ATENOLOL 25 MG TABLET PO SCH (20:39)
[2019-07-06] VITALS (10 sets, daily range): BP systolic 91–122; BP diastolic 51–65
[2019-07-06 00:03] LABS: APPEARANCE,URINE Clear (CLEAR); BILIRUBIN,URINE Negative (NEGATIVE); COLOR,URINE Yellow (YELLOW); GLUCOSE, URINE (UA) Negative (NEGATIVE); KETONES,URINE Trace mg/dL (NEGATIVE); LEUKOCYTE ESTERASE ,URINE Negative (NEGATIVE); NITRATE,URINE Negative (NEGATIVE); OCCULT BLOOD,URINE Negative (NEGATIVE); PROTEIN,URINE POS 1+ mg/dL (NEGATIVE); UROBILINOGEN,URINE 0.2 mg/dL (0.2-1.0)
[2019-07-06 00:26] LABS: BACTERIA,URINE None Seen /HPF (None Seen); RBC,URINE 0-1 /HPF (0-1); SQUAMOUS EPITHELIAL CELL,UR Rare /HPF (0-2); WBC,URINE None Seen /HPF (0-1)
[2019-07-06] MEDS: SODIUM CHLORIDE 0.9% 1000ML 1,000 ML IV SCH ×2 (02:19→13:00)
[2019-07-06 05:35] LABS: HEMATOCRIT 25.9 % (36-48); MEAN CORPUSCULAR HEMOGLOBIN 25.6 pg (27.0-33.0); MEAN CORPUSCULAR VOLUME 79.9 fL (79-99); PLATELET COUNT (AUTO) 437 K/uL (130-400); RED BLOOD CELL COUNT(AUTO) 3.24 MIL/uL (4.00-5.50); WHITE BLOOD COUNT (AUTO) 11.2 K/uL (4.8-10.8)
[2019-07-06 05:57] LABS: CREATININE 1.1 mg/dL (0.5-1.5); MAGNESIUM 1.9 mg/dL (1.80-2.40); POTASSIUM 4.3 mmol/L (3.5-5.1)
[2019-07-06] MEDS: MEROPENEM 1 GM VIAL IVP SCH ×3 (06:06→21:12)
[2019-07-06 06:17] LABS: BAND NEUTROPHILS % (MANUAL) 6 % (0-2); EOSINOPHILS % (MANUAL) 1 % (1-6); LYMPHOCYTES % (MANUAL) 31 % (22-44); MONOCYTES % (MANUAL) 5 % (2-9); REACTIVE LYMPHOCYTES 4 % (0-0); SEGMENTED NEUTROPHILS % 53 % (40-70)
[2019-07-06 06:22] LABS: MAN.DIFF COMMENT-IMPRESSION MANUAL DIFFERENTIAL; PLATELET MORPHOLOGY COMMENT ADEQUATE
[2019-07-06] MEDS: FAMOTIDINE 20MG TAB 20 MG TAB PO SCH (09:00)
[2019-07-06] MEDS: MESALAMINE 4 GM/60 ML BOTTLE RC SCH ×2 (09:47→20:50)
[2019-07-06] MEDS: FERROUS SULFATE 325 MG TABLET.DR PO SCH (09:47)
[2019-07-06] MEDS: VANCOMYCIN 500MG+NS 100ML 100 ML IV SCH ×2 (09:47→21:16)
[2019-07-06] MEDS: CALCIUM 600 + VITAMIN D 400 TABLET PO SCH ×2 (09:47→20:26)
[2019-07-06] MEDS: MULTIVITAMIN WITH MINERALS TABLET PO SCH (09:47)
[2019-07-06] MEDS: FOLIC ACID 1 MG TABLET PO SCH (09:48)
[2019-07-06] MEDS: TACROLIMUS 0.5 MG CAPSULE PO SCH ×2 (09:48→20:27)
[2019-07-06] MEDS: TACROLIMUS 1 MG CAPSULE PO SCH ×2 (09:48→20:27)
[2019-07-06] MEDS: HYDROXYUREA 500 MG CAP PO SCH (09:48)
[2019-07-06] MEDS: PANTOPRAZOLE SODIUM 40 MG TABLET.DR PO SCH ×2 (09:48→20:26)
[2019-07-06] MEDS: FOLIC ACID/VITAMIN B COMP W-C 1 CAP TAB PO SCH (09:49)
[2019-07-06] MEDS: MESALAMINE 800 MG PO SCH ×3 (09:50→20:25)
[2019-07-06] MEDS ORDERED: VANCOMYCIN 500MG+NS 100ML 100 ML IV SCH (14:00)
[2019-07-06] MEDS: ATENOLOL 25 MG TABLET PO SCH (20:26)
--- NOTE | 2019-07-06 21:30 | NUR ---
ENEMA ADMINISTERED TO PT. DIRECTED. NO DISTRESS NOTED OR CONCERNS AT THIS TIME. PT IS AMBULATORY. ABLE TO TAKE MEDICATIONS WELL. NO SOB. NO PAIN STATED.
[2019-07-07] VITALS: BP 139/72
[2019-07-07 04:00] VITALS: BP 114/65
[2019-07-07 04:50] LABS: BASOPHILS % (AUTO) 0.6 % (0.0-5.0); EOSINOPHILS % (AUTO) 0.5 % (0.0-8.0); HEMATOCRIT 23.9 % (36-48); LYMPHOCYTES % (AUTO) 48.5 % (21.0-51.0); MEAN CORPUSCULAR HEMOGLOBIN 25.8 pg (27.0-33.0); MEAN CORPUSCULAR HGB CONC 32.6 g/dL (32.0-36.0); MEAN CORPUSCULAR VOLUME 79.1 fL (79-99); MONOCYTES % (AUTO) 5.1 % (3.0-13.0); NEUTROPHILS % (AUTO) 44.6 % (40.0-77.0); PLATELET COUNT (AUTO) 496 K/uL (130-400); RED BLOOD CELL COUNT(AUTO) 3.02 MIL/uL (4.00-5.50); RED CELL DISTRIBUTION WIDTH 18.7 % (11.0-15.5); WHITE BLOOD COUNT (AUTO) 10.6 K/uL (4.8-10.8)
[2019-07-07] MEDS: MEROPENEM 1 GM VIAL IVP SCH ×3 (05:07→21:34)
[2019-07-07 05:11] LABS: BILIRUBIN,TOTAL 0.4 mg/dL (0.2-1.0); CREATININE 1.1 mg/dL (0.5-1.5); POTASSIUM 3.8 mmol/L (3.5-5.1); TOTAL PROTEIN, SERUM 5.1 g/dL (6.0-8.3)
[2019-07-07 07:30] VITALS: BP 102/62
[2019-07-07] MEDS: MESALAMINE 800 MG PO SCH ×3 (07:42→21:00)
[2019-07-07] MEDS: TACROLIMUS 0.5 MG CAPSULE PO SCH ×2 (07:42→21:33)
[2019-07-07] MEDS: FOLIC ACID/VITAMIN B COMP W-C 1 CAP TAB PO SCH (07:42)
[2019-07-07] MEDS: FERROUS SULFATE 325 MG TABLET.DR PO SCH (07:42)
[2019-07-07] MEDS: FOLIC ACID 1 MG TABLET PO SCH (07:42)
[2019-07-07] MEDS: MULTIVITAMIN WITH MINERALS TABLET PO SCH (07:42)
[2019-07-07] MEDS: TACROLIMUS 1 MG CAPSULE PO SCH ×2 (07:42→21:33)
[2019-07-07] MEDS: PANTOPRAZOLE SODIUM 40 MG TABLET.DR PO SCH ×2 (07:42→21:34)
[2019-07-07] MEDS: CALCIUM 600 + VITAMIN D 400 TABLET PO SCH ×2 (07:42→21:33)
[2019-07-07] MEDS: VANCOMYCIN 500MG+NS 100ML 100 ML IV SCH ×2 (07:43→21:38)
[2019-07-07] MEDS: FAMOTIDINE 20MG TAB 20 MG TAB PO SCH (07:48)
--- NOTE | 2019-07-07 08:00 | NUR ---
ASSESSMENT PT IS AAOX3 DENIES CP DENIES SOB DENIES NV NO COMPLAINTS AT THIS TIME SITTING UPRIGHT IN CHAIR. AM MEDS GIVEN NO COMPLAINTS, ATE BREAKFAST, NO COMPLAINTS. CALL LIGHT WITHIN REACH.
[2019-07-07] MEDS: HYDROXYUREA 500 MG CAP PO SCH (08:54)
[2019-07-07 11:30] VITALS: BP 104/71
--- NOTE | 2019-07-07 14:00 | NUR ---
STATUS RESTING IN BED DENIES PAIN NO COMPLAINTS. FAMILY IS AT BEDSIDE.
[2019-07-07 15:30] VITALS: BP 100/57
[2019-07-07 20:09] VITALS: BP 110/58
[2019-07-07] MEDS: MESALAMINE 4 GM/60 ML BOTTLE RC SCH (21:32)
[2019-07-07] MEDS: ATENOLOL 25 MG TABLET PO SCH (21:34)
[2019-07-08] VITALS: BP 123/71
[2019-07-08 04:00] VITALS: BP 109/68
[2019-07-08 04:52] LABS: BASOPHILS % (AUTO) 0.5 % (0.0-5.0); EOSINOPHILS % (AUTO) 0.3 % (0.0-8.0); HEMATOCRIT 25.2 % (36-48); LYMPHOCYTES % (AUTO) 41.9 % (21.0-51.0); MEAN CORPUSCULAR HEMOGLOBIN 25.6 pg (27.0-33.0); MEAN CORPUSCULAR HGB CONC 32.1 g/dL (32.0-36.0); MEAN CORPUSCULAR VOLUME 79.7 fL (79-99); MONOCYTES % (AUTO) 6.1 % (3.0-13.0); NEUTROPHILS % (AUTO) 50.6 % (40.0-77.0); PLATELET COUNT (AUTO) 588 K/uL (130-400); RED BLOOD CELL COUNT(AUTO) 3.16 MIL/uL (4.00-5.50); RED CELL DISTRIBUTION WIDTH 18.4 % (11.0-15.5); WHITE BLOOD COUNT (AUTO) 8.9 K/uL (4.8-10.8)
[2019-07-08 05:21] LABS: BILIRUBIN,TOTAL 0.4 mg/dL (0.2-1.0); POTASSIUM 3.9 mmol/L (3.5-5.1); TOTAL PROTEIN, SERUM 5.3 g/dL (6.0-8.3)
[2019-07-08] MEDS: MEROPENEM 1 GM VIAL IVP SCH ×2 (05:29→14:06)
[2019-07-08 08:15] VITALS: BP 107/70
[2019-07-08] MEDS: FAMOTIDINE 20MG TAB 20 MG TAB PO SCH (09:00)
[2019-07-08] MEDS: CALCIUM 600 + VITAMIN D 400 TABLET PO SCH (09:30)
[2019-07-08] MEDS: FOLIC ACID/VITAMIN B COMP W-C 1 CAP TAB PO SCH (09:30)
[2019-07-08] MEDS: TACROLIMUS 0.5 MG CAPSULE PO SCH (09:30)
[2019-07-08] MEDS: MULTIVITAMIN WITH MINERALS TABLET PO SCH (09:30)
[2019-07-08] MEDS: FERROUS SULFATE 325 MG TABLET.DR PO SCH (09:30)
[2019-07-08] MEDS: PANTOPRAZOLE SODIUM 40 MG TABLET.DR PO SCH (09:30)
[2019-07-08] MEDS: FOLIC ACID 1 MG TABLET PO SCH (09:30)
[2019-07-08] MEDS: TACROLIMUS 1 MG CAPSULE PO SCH (09:31)
[2019-07-08] MEDS: HYDROXYUREA 500 MG CAP PO SCH (09:31)
[2019-07-08] MEDS: MESALAMINE 800 MG PO SCH ×2 (09:41→14:21)
[2019-07-08] MEDS: VANCOMYCIN 500MG+NS 100ML 100 ML IV SCH (10:32)
[2019-07-08 12:50] VITALS: BP 100/64
[2019-07-08] MEDS ORDERED: VANCOMYCIN 1GM+NS 250ML 250 ML IV SCH (14:00)
[2019-07-08 16:20] VITALS: BP 102/58
[2019-07-08] MEDS ORDERED: PANT40TA PO (16:25)
[2019-07-08] MEDS ORDERED: FOLI1 PO (16:25)
[2019-07-08] MEDS ORDERED: HYDR500C PO (16:25)
[2019-07-08] MEDS ORDERED: FERR324T4 PO (16:32)
--- NOTE | 2019-07-08 18:47 | NUR ---
PATIENT DISCHARGED HOME AT THIS TIME; PIV AND TELEPACK REMOVED; DC INSTRUCTIONS GIVEN AND ALL QUESTIONS ANSWERED; PRESCRIPTIONS SENT TO [facility]; WRITTEN PRESCRIPTION FOR HYDREA ALSO GIVEN TO PATIENT AND COPY PLACED IN CHART; COPY OF PT NOTES ALSO GIVEN TO PATIENT SO SHE MAY ASK FOR HH PT IF POSSIBLE; PATIENT DISCHARGED HOME WITH DAUGHTER
== END 2019-07-08 18:50 | disposition home or self-care (01) | DRG 385 ==
LOC: EDH 05:57 → EDHIP 09:32 → 3DH 19:38 → 2BH 07-01 17:39 → 3AH 07-03 13:47 → 2CH 07-05 01:00 → 2AH 07-06 11:03
PROVIDERS: ADMIT Internal Medicine; ATTEND Internal Medicine
PROC: 009U3ZX Drainage of Spinal Canal, Percutaneous Approach, Diagnostic (ICD-10-PCS; 2019-06-27)
PROC: 30233N1 Transfusion of Nonautologous Red Blood Cells into Peripheral Vein, Percutaneous Approach (ICD-10-PCS; principal; 2019-07-01)
PROC: 0DBE8ZX Excision of Large Intestine, Via Natural or Artificial Opening Endoscopic, Diagnostic (ICD-10-PCS; 2019-07-02)
DX: K51.911 Ulcerative colitis, unspecified with rectal bleeding (principal); K57.31 Diverticulosis of large intestine without perforation or abscess with bleeding; E87.1 Hypo-osmolality and hyponatremia; K83.01 Primary sclerosing cholangitis; D62 Acute posthemorrhagic anemia; Z94.4 Liver transplant status; D68.59 Other primary thrombophilia; N17.9 Acute kidney failure, unspecified; D47.3 Essential (hemorrhagic) thrombocythemia; N18.3 Chronic kidney disease, stage 3 (moderate); I48.0 Paroxysmal atrial fibrillation; D63.8 Anemia in other chronic diseases classified elsewhere; E87.5 Hyperkalemia; I12.9 Hypertensive chronic kidney disease with stage 1 through stage 4 chronic kidney disease, or unspecified chronic kidney disease; N28.1 Cyst of kidney, acquired; I08.3 Combined rheumatic disorders of mitral, aortic and tricuspid valves; R51 Headache; I95.9 Hypotension, unspecified; E66.01 Morbid (severe) obesity due to excess calories; K64.1 Second degree hemorrhoids; K74.60 Unspecified cirrhosis of liver; Z79.82 Long term (current) use of aspirin; Z79.899 Other long term (current) drug therapy; Z93.3 Colostomy status; Z88.5 Allergy status to narcotic agent; Z88.2 Allergy status to sulfonamides; Z68.23 Body mass index [BMI] 23.0-23.9, adult
CPT/HCPCS: 36415; 36430; 36600; 45380; 62272; 70450; 70544; 70551; 71045; 76700; 80048; 80053; 80197; 80202; 81001; 81003; 82140; 82550; 82570; 82728; 82803; 82945; 82948; 83540; 83550; 83605; 83690; 83735; 83874; 83880; 83935; 84100; 84145; 84157; 84300; 84443; 84484; 84550; 85014; 85018; 85025; 85027; 85610; 85730; 86140; 86592; 86641; 86694; 86735; 86757; 86765; 86787; 86788; 86850; 86900; 86901; 86922; 87040; 87071; 87088; 87147; 87205; 87483; 87804; 89051; 93005; 93306; 93880; 97039; C9113; G0378; J1200; J1756; J1885; J2185; J2354; J2370; J2405; J2704; J2765; J3370; J3490; J7030; J7120; J7507; P9016

== ENCOUNTER 2019-07-16 21:57 | Emergency (ER) | payer MEDICARE ==
[~2019-07-16 21:57] MED LIST: AEC81 PO; ANAG1CAP3 PO; ATEN25TA PO; CALC-1153 PO; FERR324T4 PO; FOLI1 PO; HYDR500C PO; MESA800T9 PO; MULT-1250 PO; PANT40TA PO; TACR0.5C7 PO; TACR1CAP10 PO
[2019-07-16 22:19] LABS: BASOPHILS % (AUTO) 0.5 % (0.0-5.0); EOSINOPHILS % (AUTO) 1.6 % (0.0-8.0); LYMPHOCYTES % (AUTO) 35.3 % (21.0-51.0); MEAN CORPUSCULAR HEMOGLOBIN 26.2 pg (27.0-33.0); MEAN CORPUSCULAR HGB CONC 32.3 g/dL (32.0-36.0); MONOCYTES % (AUTO) 7.1 % (3.0-13.0); NEUTROPHILS % (AUTO) 55.2 % (40.0-77.0); PLATELET COUNT (AUTO) 635 K/uL (130-400); RED BLOOD CELL COUNT(AUTO) 3.21 MIL/uL (4.00-5.50); RED CELL DISTRIBUTION WIDTH 19.1 % (11.0-15.5); WHITE BLOOD COUNT (AUTO) 7.3 K/uL (4.8-10.8)
[2019-07-16] MEDS ORDERED: ORPHENADRINE CITRATE 30 MG/ML ML ONE (22:29)
[2019-07-16 22:35] LABS: CREATININE 1.3 mg/dL (0.5-1.5); PARTIAL THROMBOPLASTIN TIME 32.7 SEC (26.3-35.5); POTASSIUM 4.4 mmol/L (3.5-5.1); PROTHROMBIN TIME 10.8 SEC (9.6-11.6)
[2019-07-16 22:39] LABS: ALBUMIN 2.5 g/dL (3.5-5.0); BILIRUBIN,TOTAL 0.3 mg/dL (0.2-1.0); TOTAL PROTEIN, SERUM 6.9 g/dL (6.0-8.3)
[2019-07-16 22:47] LABS: B-TYPE NATRIURETIC PEPTIDE 122 pg/mL (0-100)
[2019-07-16] MEDS ORDERED: FAMOTIDINE/PF 20 MG/2 ML VIAL IV ONE (23:18)
[2019-07-16] MEDS ORDERED: SODIUM CHLORIDE 0.9% 1000ML 1,000 ML IV ONE (23:23)
[2019-07-16] MEDS ORDERED: IOHEXOL 350 MG/ML 100ML INFUS..BTL IV ONE (23:28)
== END 2019-07-17 02:14 | disposition home or self-care (01) ==
LOC: EDH 21:57
DX: R07.89 Other chest pain (principal); J90 Pleural effusion, not elsewhere classified; R18.8 Other ascites; I48.91 Unspecified atrial fibrillation; Z88.5 Allergy status to narcotic agent; Z88.2 Allergy status to sulfonamides
CPT/HCPCS: 36415; 71045; 71260; 74177; 80053; 82550; 83605; 83690; 83880; 84484; 85025; 85610; 85730; 87040 ×2; 93005; 96374; 96375; 99285; J2360; J3490; J7030; Q9967